=== PATIENT | male | born 1945 | race Caucasian/White ===

== ENCOUNTER 2016-04-21 10:11 | Emergency (ER) | payer MEDICARE, BC ==
[~2016-04-21] VITALS: Ht 180.3 cm; Wt 95.0 kg
[2016-04-21 10:14] VITALS: BP 173/85; PULSE 42; RESP 20; TEMP 97.4; O2SAT 96
--- NOTE | 2016-04-21 12:08 | PD ---
HPI Chief Complaint: Injury Time Seen by Provider: 11:57 Travel History International Travel<30 days: No Contact w/Intl Traveler<30days: No Traveled to known affect area: No History of Present Illness HPI This is a 70-year-old male who presents to the emergency department with right shoulder pain. He was out watering in his garden today and he fell and landed on his right shoulder. He was seen at an urgent care and told he probably has a shoulder dislocation. He says his pain is moderate severity, constant, and is unable to move his right arm. This is never happened to him before. He denies any other injuries. He denies any numbness or weakness. [facility] Past Medical History Narrative Medical Hypertension, hyperlipidemia Social History Tobacco Use: No Allergies-Medications (Allergen,Severity, Reaction): Coded Allergies: Shellfish (Verified Allergy, Severe, 04/21/16) Reported Meds & Prescriptions Reported Meds & Active Scripts Active Reported Prinivil (Lisinopril) 20 Mg Tab 20 Mg PO DAILY Lipitor (Atorvastatin Calcium) 20 Mg Tab 20 Mg PO DAILY Review of Systems Except as stated in HPI: all other systems reviewed are Neg Physical Exam Narrative GENERAL: Well-nourished, well-developed patient. SKIN: Warm and dry. HEAD: Normocephalic. EYES: No scleral icterus. No injection or drainage. NECK: Supple, trachea midline. CARDIOVASCULAR: Regular rate and rhythm without murmurs. 2+ right radial pulse with normal capillary refill. RESPIRATORY: Breath sounds equal bilaterally. No accessory muscle use. GASTROINTESTINAL: Abdomen soft, non-tender, nondistended. MUSCULOSKELETAL: Depression at the right shoulder with proximal humerus depressed below the acromion. Neuro: Sensation and motor intact in the median, ulnar and radial distribution of the right arm. Data Data Last Documented VS Vital Signs Date Time Temp Pulse Resp B/P Pulse Ox O2 Delivery O2 Flow Rate FiO2 04/21/16 13:51 85 16 118/75 95 Nasal Cannula 2 04/21/16 10:14 97.4 Orders Hydromorphone Pf Inj (Dilaudid Pf Inj) (04/21/16 12:15) ^ Insert Iv (04/21/16 12:01) Shoulder, Limited(2vws) (04/21/16 ) Propofol 200 Mg/20 Ml Inj (Diprivan 200 (04/21/16 12:45) Shoulder, Limited(2vws) (04/21/16 ) MDM Medical Decision Making Medical Screen Exam Complete: Yes Emergency Medical Condition: Yes Interpretation(s) X-ray: Right Shoulder dislocation Differential Diagnosis Shoulder dislocation, proximal humerus fracture, humerus shaft fracture Narrative Course This is a 70-year-old male who presents to the emergency department having fallen and injuring his right shoulder. Patient has evidence of a shoulder dislocation on the right. I did attempt scapular manipulation technique awake but the patient did not reduce. We performed a conscious sedation under propofol and patient easily reduced. Postreduction film was reassuring. Patient will be discharged home in a sling and swath and told to follow up with orthopedics. Procedures Procedure Narrative Shoulder reduction: The right shoulder was reduced using traction countertraction technique. Patient tolerated procedure well and arm was neurovascularly intact following reduction. After the risks and benefits were discussed the following procedure was performed: MODERATE SEDATION: The patient was placed on a thrill performer and pulse oximetry. An ambu bag and suction was immediately available at bedside. The patient was monitored by the nurse. Oxygen saturation, heart rate and blood pressure were monitored. Procedural sedation was acheived using 100 mg of IV propofol. The patient was observed until awake and alert. Procedural Sedation time in attendance was 30 minutes. Diagnosis Primary Impression: Shoulder dislocation Qualified Code: S43.004A - Shoulder dislocation, right, initial encounter Patient Instructions: General Instructions Additional Instructions: If you develop severe pain, weakness, numbness or difficulty moving your arm return to the emergency room. Maintain your right arm in a sling and swath for 4 weeks and follow-up with an orthopedic surgeon as soon as possible. Med/Other Pt SpecificInfo: Prescription(s) given Scripts Tramadol 50 Mg Tab50 Mg PO Q6H PRN (PAIN) #10 TAB Ref 0 Prov:Krista Carl MD 04/21/16 Disposition: 01 DISCHARGE HOME Condition: Stable Krista Carl MD Apr 21, 2016 12:08
[2016-04-21] MEDS ORDERED: HYDROmorphone HCL PF 1 MG/ML VIAL IV PUSH ONE (12:15)
[2016-04-21 12:22] VITALS: BP 131/74; PULSE 81; RESP 16; O2SAT 98
[2016-04-21] MEDS ORDERED: LIPI20TA PO (12:22)
[2016-04-21] MEDS ORDERED: PRIN20TA2 PO (12:22)
[2016-04-21] MEDS ORDERED: PROPOFOL 200 MG/20 ML AMP IV ONE (12:45)
--- NOTE | 2016-04-21 13:11 | RADRPT ---
EXAM DATE/TIME: 04/21/2016 12:13 [facility] COMPARISON: No previous studies available for comparison. INDICATIONS : Fell pain with deformity. MEDICAL HISTORY : None. SURGICAL HISTORY : None. ENCOUNTER: Initial ACUITY: 1 day PAIN SCORE: 10/10 LOCATION: Right shoulder FINDINGS: 2 views of the right shoulder demonstrate anterior-inferior dislocation of the humeral head. No visua lized fracture. The lungs are clear. CONCLUSION: Anterior-inferior shoulder dislocation without visible fracture. Payton Jeter MD on April 21, 2016 at 13:09 Board Certified Radiologist. This report was verified electronically.
[2016-04-21 13:30] VITALS: O2SAT 97
[2016-04-21 13:31] VITALS: BP 126/68; PULSE 88; RESP 12; O2SAT 97
[2016-04-21 13:51] VITALS: BP 118/75; PULSE 85; RESP 16; O2SAT 95
[2016-04-21] MEDS ORDERED: TRAM50TA PO (14:07)
[2016-04-21 14:17] VITALS: BP 136/80; PULSE 75; RESP 16; O2SAT 95
--- NOTE | 2016-04-21 15:05 | RADRPT ---
EXAM DATE/TIME: 04/21/2016 13:49 [facility] COMPARISON: SHOULDER RIGHT LTD (2VWS), April 21, 2016, 12:13. INDICATIONS : Post reduction. MEDICAL HISTORY : None. SURGICAL HISTORY : None. ENCOUNTER: Subsequent ACUITY: 1 day PAIN SCORE: 9/10 LOCATION: Right shoulder. FINDINGS: 3 views of the right shoulder demonstrates no fracture or dislocation. Acromioclavicular joint appear s intact. No soft tissue abnormality is seen. CONCLUSION: Reduction of the humeral head dislocation. No fracture is identified. Negrito Burns MD on April 21, 2016 at 14:58 Board Certified Radiologist. This report was verified electronically.
== END 2016-04-21 15:04 | disposition home or self-care (01) ==
LOC: NEPC 10:11
DX: S43.004A Unspecified dislocation of right shoulder joint, initial encounter (principal); E78.5 Hyperlipidemia, unspecified; I10 Essential (primary) hypertension; W18.39XA Other fall on same level, initial encounter; Y93.H2 Activity, gardening and landscaping; Y92.096 Garden or yard of other non-institutional residence as the place of occurrence of the external cause; Y99.9 Unspecified external cause status
CPT/HCPCS: 23650; 73030; 94770; 96374; 99152; 99153; 99283; J1170